=== PATIENT | female | born 2000 | race African-American/Black ===

== ENCOUNTER 2021-02-26 22:25 | Emergency (ER) | payer OTHER, SELFPAY ==
[2021-02-27 00:26] LABS: SARS-COV-2 RT PCR POSITIVE (NEGATIVE)
--- NOTE | 2021-02-27 00:49 | ER ---
Nurse's Notes [facility] Name: Nelida Flores Age: 20 yrs Sex: Female : 2000 Arrival Date: 02/26/2021 Time: 22:29 Bed 13 Private MD: Diagnosis: Coronavirus infection, unspecified Presentation: 02/26 22:57 Chief complaint: Patient states: she has been having a cough, shortness of breath, and sm5 a headache since today. boyfriend dx with covid yesterday. Coronavirus screen: Vaccine status: Patient reports being unvaccinated. cough unrelated to allergies, headache, shortness of breath. Ebola Screen: No symptoms or risks identified at this time. Initial Sepsis Screen: Does the patient meet any 2 criteria? HR > 90 bpm. Does the patient have a suspected source of infection? No. Patient's initial sepsis screen is negative. Risk Assessment: Do you want to hurt yourself or someone else? Patient reports no desire to harm self or others. Onset of symptoms was February 26, 2021. 22:57 Method Of Arrival: Ambulatory [facility] 22:57 Acuity: AFSHIN 3 sm5 Historical: - Allergies: 22:59 Toradol; sm5 - Immunization history:: Client reports having NOT received the Covid vaccine. - Social history:: Smoking status: Reported history of juuling and/or vaping. Screenin:58 Abuse screen: Denies threats or abuse. Denies injuries from another. Nutritional sm5 screening: No deficits noted. Tuberculosis screening: No symptoms or risk factors identified. Fall Risk None identified. Assessment: 23:35 Pain: Denies pain. GI: No deficits noted. sv1 02/27 01:15 General: Appears in no apparent distress. Behavior is calm, cooperative. Neuro: Level mk of Consciousness is awake, alert, obeys commands, Oriented to person, place, time, situation. Cardiovascular: Heart tones S1 S2 present Capillary refill < 3 seconds in bilateral fingers toes Patient's skin is warm and dry. Rhythm is regular. Respiratory: Airway is patent Trachea midline Respiratory effort is even, unlabored, Respiratory pattern is regular, symmetrical, Breath sounds are clear bilaterally. Respiratory: Reports cough that is non-productive, since 1 day. GI: Abdomen is flat. : No signs and/or symptoms were reported regarding the genitourinary system. Derm: Skin is intact, is healthy with good turgor, Skin is dry. Vital Signs: 02/26 22:57 BP 129 / 89; Pulse 114; Resp 18; Temp 98.2; Pulse Ox 100% ; cs9 22:57 BP 129 / 84; Pulse 112; Resp 19; Temp 98.2(O); Pulse Ox 100% on R/A; Weight 64.41 kg; 5 Height 5 ft. (152.40 cm); Pain 8/10; 02/27 01:15 BP 118 / 85; Pulse 85; Resp 18; Temp 99; Pulse Ox 100% on R/A; mk 02/26 22:57 Body Mass Index 27.73 (64.41 kg, 152.40 cm) 5 [place] Coma Score: 01:15 Eye Response: spontaneous(4). Verbal Response: oriented(5). Motor Response: obeys commands(6). Total: 15. ED Course: 02/26 22:29 Patient arrived in ED. 2 22:47 Dayron Dyer NP is PHCP. pm1 22:47 Vladimir Blackmon MD is Attending Physician. pm1 22:58 Triage completed. 5 22:58 Arm band placed on right wrist. 5 22:59 Patient has correct armband on for positive identification. Bed in low position. Call [facility] light in reach. Side rails up X2. 23:16 Stoney Fernández RN is Primary Nurse. sv1 23:35 COVID-19/FLU A+B Sent. sv1 23:35 Strep Sent. sv1 23:35 COVID-19/FLU A+B (Document "Date of Onset" if Symptomatic) Sent. sv1 02/27 01:56 No provider procedures requiring assistance completed. mk Administered Medications: 00:56 Drug: Zofran (Ondansetron) 4 mg Route: PO; 01:57 Follow up: Response: No adverse reaction Outcome: 00:48 Discharge ordered by . pm1 01:56 Discharged to home 01:56 Condition: stable 01:56 Discharge instructions given to patient. 01:57 Patient left the ED. Signatures: Dayron Dyer NP RN BURN 1 Nicole Nair 2 Thais Hamilton 9 Courtney Watkins RN RN 5 Stoney Fernández, RN RN sv1 Teresita Vargas, RN RN mk Corrections: (The following items were deleted from the chart) : 01:56 GCS: 15, dutch 01:57 01:56 BP 118 / 85; Pulse 85bpm; Resp 18bpm; Pulse Ox 100% RA; Temp 99F; [facility]
--- NOTE | 2021-02-27 00:49 | EDPHYS ---
Physician Documentation [facility] Name: Nelida Flores Age: 20 yrs Sex: Female : 2000 Arrival Date: 02/26/2021 Time: 22:29 Bed 13 Private MD: ED Physician Vladimir Blackmon HPI: 02/26 23:09 This 20 yrs old Male presents to ER via Ambulatory with complaints of Cough, Nausea, pm1 Headache, Shortness Of Breath. 23:09 The patient or guardian reports cough, with no sputum, flu symptoms, arthralgias, pm1 myalgias, headache. Onset: The symptoms/episode began/occurred today. Severity of symptoms: in the emergency department the symptoms are unchanged. Modifying factors: The symptoms are alleviated by the symptoms are aggravated by nothing. Associated signs and symptoms: Pertinent positives: diarrhea, nausea, vomiting, Pertinent negatives: chest pain, fever. The patient has not experienced similar symptoms in the past. The patient has not recently seen a physician. Patient brought her boyfriend yesterday to the ER who was discharged home with a diagnoses of Covid. Historical: - Allergies: 22:59 Toradol; sm5 - Immunization history:: Client reports having NOT received the Covid vaccine. - Social history:: Smoking status: Reported history of juuling and/or vaping. ROS: 23:09 Cardiovascular: Negative for chest pain, palpitations, and edema. pm1 23:09 Back: Negative for injury and pain, MS/Extremity: Negative for injury and deformity, Skin: Negative for injury, rash, and discoloration. 23:09 Constitutional: Positive for body aches, fever, poor PO intake. 23:09 Respiratory: Positive for cough, shortness of breath. 23:09 Abdomen/GI: Positive for nausea and vomiting, Negative for abdominal pain, diarrhea. 23:09 Neuro: Positive for headache. 23:09 All other systems are negative. Exam: 23:09 Constitutional: This is a well developed, well nourished patient who is awake, alert, pm1 and in no acute distress. Head/Face: Normocephalic, atraumatic. 23:09 Back: No spinal tenderness. No costovertebral tenderness. Full range of motion. Skin: Warm, dry with normal turgor. Normal color with no rashes, no lesions, and no evidence of cellulitis. MS/ Extremity: Pulses equal, no cyanosis. Neurovascular intact. Full, normal range of motion. 23:09 Eyes: Exam is negative for acute changes, Extraocular movements: no acute changes, Conjunctiva: normal, no injection. 23:09 ENT: Exam is negative for acute changes, Mouth: no acute changes, Lips: normal, moist, Oral mucosa: normal, pink and intact, moist. 23:09 Cardiovascular: Exam negative for acute changes, Rate: tachycardic, Rhythm: regular, Pulses: no pulse deficits are appreciated. 23:09 Respiratory: Exam negative for acute changes, Breath sounds: are clear throughout. 23:09 Abdomen/GI: Inspection: abdomen appears normal, Palpation: abdomen is soft and non-tender, in all quadrants. 23:09 Neuro: Exam negative for acute changes, Orientation: is normal, Mentation: is normal, Motor: is normal, moves all fours. Vital Signs: 22:57 BP 129 / 89; Pulse 114; Resp 18; Temp 98.2; Pulse Ox 100% ; cs9 22:57 BP 129 / 84; Pulse 112; Resp 19; Temp 98.2(O); Pulse Ox 100% on R/A; Weight 64.41 kg; sm5 Height 5 ft. (152.40 cm); Pain 8/10; 02/27 01:15 BP 118 / 85; Pulse 85; Resp 18; Temp 99; Pulse Ox 100% on R/A; mk 02/26 22:57 Body Mass Index 27.73 (64.41 kg, 152.40 cm) sm5 [place] Coma Score: 01:15 Eye Response: spontaneous(4). Verbal Response: oriented(5). Motor Response: obeys mk commands(6). Total: 15. MDM: 02/26 23:05 Patient medically screened. pm1 02/27 00:47 Data reviewed: vital signs. Data interpreted: Pulse oximetry: on room air is 100 %. pm1 Interpretation: normal. Counseling: I had a detailed discussion with the patient and/or guardian regarding: the historical points, exam findings, and any diagnostic results supporting the discharge/admit diagnosis, lab results, the need for outpatient follow up, to return to the emergency department if symptoms worsen or persist or if there are any questions or concerns that arise at home. 02/26 23:09 Order name: COVID-19/FLU A+B (Document "Date of Onset" if Symptomatic) pm1 02/26 23:09 Order name: Strep; Complete Time: 00:45 pm1 02/26 23:09 Order name: COVID-19/FLU A+B; Complete Time: 00:45 EDMS 02/26 23:52 Order name: PO challenge pm1 02/27 00:12 Order name: Throat Culture EDMS 02/26 23:52 Order name: Urine Dipstick-Ancillary (obtain specimen); Complete Time: 00:28 pm1 02/26 23:52 Order name: Urine Test (obtain specimen); Complete Time: 00:28 pm1 Administered Medications: 00:56 Drug: Zofran (Ondansetron) 4 mg Route: PO; mk 01:57 Follow up: Response: No adverse reaction mk Disposition: 04:03 Co-signature as Attending Physician, Vladimir Blackmon MD. 7 Disposition Summary: 02/27/21 00:48 Discharge Ordered Location: Home pm1 Problem: new pm1 Symptoms: have improved pm1 Condition: Stable pm1 Diagnosis - Coronavirus infection, unspecified pm1 Followup: pm1 - With: Emergency Department - When: As needed - Reason: Worsening of condition Followup: pm1 - With: Private Physician - When: 2 - 3 days - Reason: Recheck today's complaints, Continuance of care, Re-evaluation by your physician Discharge Instructions: - Discharge Summary Sheet pm1 - COVID-19 pm1 - COVID-19 Frequently Asked Questions pm1 - 10 Things You Can Do to Manage Your COVID-19 Symptoms at Home - [facility] pm1 - COVID-19: Quarantine vs. Isolation - [facility] pm1 Forms: - Medication Reconciliation Form pm1 - Thank You Letter pm1 - Antibiotic Education pm1 - Prescription Opioid Use pm1 Prescriptions: - ondansetron 4 mg Oral tablet,disintegrating - place 1 tablet by TRANSLINGUAL route every 8 hours As needed; 15 tablet; pm1 Refills: 0, Product Selection Permitted Signatures: Dispatcher [employer] EDMS Dayron Dyer, ROCK DUSTER ROCK DUSTER pm1 Vladimir Blackmon MD MD 7 Courtney Watkins, RN RN 5 Teresita Vargas RN RN
[2021-02-27] MEDS ORDERED: ONDANSETRON 4 MG (ODT) TAB ONE (00:55)
[2021-02-27 02:09] VITALS: O2SAT 100
[2021-02-27 02:11] VITALS: BP 118/85; TEMP 99
== END 2021-02-27 01:57 | disposition home or self-care (01) ==
LOC: ER 22:25 → EDSEX 22:25 → ER 02-27 01:57
DX: U07.1 COVID-19 (principal); Z88.5 Allergy status to narcotic agent
CPT/HCPCS: 87070; 87081; 0240U; 99283